=== PATIENT | female | born 1980 | race Caucasian/White ===

== ENCOUNTER → 2018-05-16 | Outpatient (CLI) | payer OTHER ==
--- NOTE | 2018-05-16 14:20 | CARD ---
MR#: [id number] Date of Study: 05/16/2018 Ordering Physician: TOMASA REVELES, Referring Physician: TOMASA REVELES, Tech: Kelley Malave [facility] APPROVED REPORT EXAM: Two-dimensional and M-mode echocardiogram with Doppler and color Doppler. Other Information Quality : AverageHR: 90bpm Rhythm : NSR INDICATION Chest Pain RISK FACTORS Family History Smoking 2D DIMENSIONS RVDd2.1 (2.9-3.5cm)Left Atrium(2D)2.6 (1.6-4.0cm) IVSd0.6 (0.7-1.1cm)Aortic Root(2D)2.9 (2.0-3.7cm) LVDd4.5 (3.9-5.9cm)LVOT Diameter1.9 (1.8-2.4cm) PWd0.7 (0.7-1.1cm)LVDs3.1 (2.5-4.0cm) FS (%) 31.2 %SV55.9 ml LVEF(%)59.1 (>50%) Aortic Valve AoV Peak Reinaldo.143.2cm/sAoV VTI25.4cm AO Peak GR.8.2mmHgLVOT Peak Reinaldo.91.0cm/s AO Mean GR.5mmHgAVA (VMAX)1.81cm2 CALLY (VTI)2.00cm2 Mitral Valve MV E Ksskhubx45.3cm/sMV DECEL [id number] MV A Ickstpwr80.0cm/sE/A Ratio1.2 MV A Ypjdnccx85vc Pulmonary Valve PV Peak Kjxmhpjz73.7cm/s LEFT VENTRICLE The left ventricle is normal size. There is normal left ventricular wall thickness. The left ventricu lar systolic function is normal. The Ejection Fraction is 55-60%. There is normal LV segmental wall m otion. The left ventricular diastolic function and filling is normal for age. RIGHT VENTRICLE The right ventricle is normal size. There is normal right ventricular wall thickness. The right ventr icular systolic function is normal. ATRIA The left atrium size is normal. The right atrium size is normal. The interatrial septum is intact wit h no evidence for an atrial septal defect or patent foramen ovale as noted on 2-D or Doppler imaging. AORTIC VALVE The aortic valve is normal in structure and function. The aortic valve is trileaflet. Doppler and Col or Flow revealed no significant aortic regurgitation. There is no significant aortic valvular stenosi s. MITRAL VALVE The mitral valve is normal in structure and function. There is no evidence of mitral valve prolapse. There is no mitral valve stenosis. Doppler and Color Flow revealed no mitral valve regurgitation note d. TRICUSPID VALVE The tricuspid valve is normal in structure and function. Doppler and Color Flow revealed no tricuspid valve regurgitation noted. There is no tricuspid valve prolapse or vegetation. There is no tricuspid valve stenosis. PULMONIC VALVE The pulmonary valve is normal in structure and function. Doppler and Color Flow revealed no pulmonic valvular regurgitation. There is no pulmonic valvular stenosis. GREAT VESSELS The aortic root is normal in size. The ascending aorta is normal in size. The IVC is normal in size a nd collapses >50% with inspiration. PERICARDIAL EFFUSION There is no evidence of significant pericardial effusion. Critical Notification Critical Value: No <Conclusion> The left ventricular systolic function is normal. The Ejection Fraction is 55-60%. There is normal LV segmental wall motion. No significant valvular abnormalities. There is no evidence of significant pericardial effusion. Signed by : Danie Mitchell, Electronically Approved : 05/16/2018 14:18:14
--- NOTE | 2018-05-16 15:05 | CARD ---
MR#: [id number] Date of Study: 05/16/2018 Ordering Physician: TOMASA REVELES, Referring Physician: TOMASA REVELES, Tech: Kelley Malave RDCS APPROVED REPORT INDICATION Chest Pain PROCEDURE The patient underwent an Exercise Stress Test using the Lucien Protocol. Blood pressure, heart rate, a nd EKG were monitored. An Echocardiogram was performed by fire range technician in four stages in quad fashion. At peak stress four se lected images were obtained and placed side by side with resting images for comparison. STRESS ECHO FINDINGS The resting Echocardiogram showed normal left ventricular systolic contractility with an estimated Ej ection Fraction of about 60 %. The Resting Echocardiogram showed normal augmentation of myocardial wall segments using a 16 segment model. The Stress Echocardiogram showed normal augmentation of myocardial wall segments using a 16 segment m darinel. The Stress Echocardiogram left ventricular systolic contractility has an estimated Ejection Fraction of about 80%. Test Type: Exercise Stress Nurse/Tech: Shaina Burleson RN Test Indications: Chest pain and shortness of air Cardiac History and Allergies: Family history,smoker Medications: see EMR Medical History: see EMR Resting ECG: SR Resting Heart Rate: 83 bpm Resting Blood Pressure: 110/70mmHg Pretest Chest Pain: No chest pain Nurse/Tech Notes S1,S2 and lungs are clear to auscultation. Patient stated she is anxious about the test. Stress Symptoms Fatigue POST EXERCISE Reason for Termination: Reached target heart rate, Fatigue Target HR: Yes Max HR: 188 bpm 104% of Maximum Predicted HR: 180 bpm Exercise duration: 9:53 min:sec, 4 Stage Exercise capacity: 12.8METs Max Blood Pressure: 140/71mmHg Blood Pressure response to exercise: Normal blood pressure response during stress. Heart Rate response to exercise: WNL Chest Pain: No. Arrhythmia: No. ST Change: No. INTERPRETATION Stress EKG Conclusion: Baseline EKG showed sinus rhythm. No ischemic changes at peak stress. No arr hythmias. <Conclusion> Treadmill exercise stress echocardiogram did not show any evidence of ischemia or infarct. Normal left ventricle systolic function with ejection fraction estimated at 60%. Patient had good activity tolerance. Low risk for cardiac events. Signed by : Danie Mitchell, Electronically Approved : 05/16/2018 15:03:37
== END | disposition home or self-care (01) ==
LOC: ECHO 12:21
PROVIDERS: ATTEND Internal Medicine Cardiovascular Disease
DX: R07.9 Chest pain, unspecified (principal); R06.02 Shortness of breath; F17.200 Nicotine dependence, unspecified, uncomplicated; Z82.49 Family history of ischemic heart disease and other diseases of the circulatory system
CPT/HCPCS: 93017; 93306; 93350

== ENCOUNTER → 2018-09-09 | Outpatient (CLI) | payer OTHER ==
[~2018-09-09] MED LIST: IOHEXOL 300 MG/ML 100ML VIAL. IV ONE
--- NOTE | 2018-09-09 13:51 | KCIC ---
CT SOFT TISSUE NECK W/CONTRAST Indication: Multiple posterior neck nodules Technique: Postcontrast CT imaging was performed of the neck, multiplanar reconstruction images submitted. One or more of the following individualized dose reduction techniques were utilized for this examination: 1. Automated exposure control 2. Adjustment of the mA and/or kV according to patient size 3. Use of iterative reconstruction technique. Comparison: None Findings: There is a large approximate 1 cm transverse by 0.9 cm AP by 1.1 cm CC oblong, enhancing lesion located at the level of the foramen magnum posterior to the cervical medullary junction. This enhances to similar degree comparing with the vasculature. There is preservation of the parapharyngeal fat planes. Parotid and submandibular glands are symmetric in appearance. There are some scattered small nodes of the bilateral neck although no enlargement chronic nodes identified. Largest nodes measuring about 0.5 cm short axis dimension. There are some small nodes of the posterior cervical chains bilaterally, largest about 0.5 cm short axis dimension. There are a few small nodules located superficial to the musculature of the posterior neck, largest about 0.3 cm short axis dimension on the right near the C2-3 level. There is no abnormality of the thyroid gland. There is some centrilobular emphysema visualized lung apices. There is moderate degenerative disc disease C5-6, spondylosis at this level and minimal posterior subluxation C5 relative to C6. There is central canal stenosis C5-6 estimated about 8 mm. There is uncovertebral degenerative change greatest on the right at C4-C5 and bilaterally at C5-C6. There is fairly severe right greater than left C5-6 neural foramina compromise, minimal narrowing of the right at C4-5. There is also mild narrowing on the left at C6-7 due to facet degenerative change. IMPRESSION: 1. There is a large focus of oblong enhancement at the level of the posterior aspect of the right magnum located posterior to the cervical medullary junction. 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 2. No significantly enlarged or necrotic nodes are identified of the neck. There are some scattered small nodes bilaterally including of posterior cervical chains. Small superficial nodules located superficial to the musculature of the neck greater on the right could be small nodes although nonspecific. Clinical follow-up is advised. 3. There is some centrilobular emphysema of the visualized lung apices. 4. There is degenerative disease and spondylosis C5-6, also minimal posterior subluxation C5 relative to C6. There is suspected central canal stenosis at C5-6 about 8 mm. There is fairly severe bilateral C5-6 neural foramina compromise. FOR INTERNAL CODING PURPOSES Critical result: Findings discussed with territory sales manager medical Og in the office of Dr. Kami Mills at 09/09/2018 1:47 PM, to inform doctor of findings. RESULT CODE: (C) Electronically signed by: Franki Gannon MD (09/09/2018 1:48 PM) [id number]
== END | disposition home or self-care (01) ==
LOC: KCIC CT 10:37
PROVIDERS: ATTEND Family Medicine
DX: R22.1 Localized swelling, mass and lump, neck (principal); J43.2 Centrilobular emphysema; M50.322 Other cervical disc degeneration at C5-C6 level; M47.812 Spondylosis without myelopathy or radiculopathy, cervical region; M43.5X2 Other recurrent vertebral dislocation, cervical region; M48.02 Spinal stenosis, cervical region; F17.210 Nicotine dependence, cigarettes, uncomplicated
CPT/HCPCS: 70491; Q9967

== ENCOUNTER → 2018-09-29 | Outpatient (CLI) | payer OTHER ==
--- NOTE | 2018-09-29 12:00 | RAD ---
FDG tumor localization scan, PET/CT, 09/29/2018: History: Lymphadenopathy Following IV injection of 14.4 mCi of 18 F-FDG, imaging was performed from the skull base to the proximal thighs. The noncontrast CT component was performed for attenuation correction and anatomic localization purposes rather than for primary diagnosis. The patient's blood glucose level at the time of injection was 82 MG/DL. Physiologic activity is evident in the neck. No hypermetabolic neck lesion is seen. No abnormal pulmonary, mediastinal or hilar FDG uptake is seen. The axillary regions are unremarkable. Normal GI tract and urinary tract activity is present in the abdomen and pelvis. There is a focus of increased activity at the right groin which demonstrates a maximum SUV of 4.6. This corresponds in location to a small nodule which cannot be clearly from the femoral artery and vein. This is most likely a lymph node. Areas of mildly increased FDG uptake are also noted in the right iliac region, however, their origin is unclear as this area is not clearly defined on the CT component due to adjacent unopacified bowel. A judith origin is suspected. A focus of increased activity is also noted in the left adnexa demonstrate a maximum SUV of 7.9. Its origin is unclear on the CT component. There is increased activity centrally in the uterus with a maximum SUV of 4.7. This is probably physiologic, related to the endometrium. Incidental note is made of granulomatous calcifications in the right chest. A small amount of free fluid is present in the pelvis. IMPRESSION: 1. Mildly increased FDG uptake at the right groin which is probably judith, and to a lesser degree in the right iliac region. 2. Increased FDG uptake in the left adnexa and centrally in the uterus may be physiologic. Correlation with sonographic findings is suggested.
== END | disposition home or self-care (01) ==
LOC: PETSC 08:50
PROVIDERS: ATTEND Family Medicine
DX: R59.1 Generalized enlarged lymph nodes (principal); J84.10 Pulmonary fibrosis, unspecified
CPT/HCPCS: 78815; A9552

== ENCOUNTER → 2019-01-13 | Outpatient (CLI) | payer MEDICAID ==
--- NOTE | 2019-01-14 10:16 | RAD ---
Pelvic ultrasound 01/13/2019 CLINICAL HISTORY: Increased uptake seen within the endometrium of the uterus on a recent PET/CT scan. Pelvic ultrasound was recommended for further evaluation. TECHNIQUE: Using the distended urinary bladder as a sonographic window, a real-time ultrasound examination of the pelvis was performed. Multiple images were obtained. FINDINGS: Comparison is made to the patient's PET/CT scan dated 09/29/2018. The uterus is retroverted. It is normal in size and echogenicity. It measures 7.7 x 5.3 x 4.9 cm in longitudinal, transverse, and AP dimensions. The endometrial echo complex measures 5 mm in thickness which is within normal limits. No focal abnormality of the uterus is seen. Both ovaries are within normal limits in size and echogenicity. The right ovary measures 3.5 x 2.0 x 1.5 cm in size. The left ovary measures 3.3 x 2.4 x 2.2 cm in size. Small follicles are seen involving both ovaries which measure 3 mm to 1 cm in size. No adnexal mass is seen. No free fluid is noted. IMPRESSION: Negative study. Electronically signed by: Tye Chavez MD (01/14/2019 10:13 AM) [facility]
== END | disposition home or self-care (01) ==
LOC: US 06:57
PROVIDERS: ATTEND Internal Medicine Hematology & Oncology
DX: N85.4 Malposition of uterus (principal); G93.9 Disorder of brain, unspecified
CPT/HCPCS: 76856

== ENCOUNTER → 2019-06-07 | Outpatient (CLI) | payer MEDICAID ==
--- NOTE | 2019-06-07 09:04 | KCIC ---
EXAM: Abdomen sonogram. HISTORY: Pain. TECHNIQUE: Sonographic imaging of the abdomen was performed. COMPARISON: PET/CT dated 09/29/2018. FINDINGS: The liver is normal in size. No focal hepatic lesion is seen. The common bile duct is normal in caliber. The gallbladder is unremarkable. The right kidney, pancreas, inferior vena cava and aorta are unremarkable. IMPRESSION: Unremarkable abdomen sonogram. Electronically signed by: Ayse Otero MD (06/07/2019 9:01 AM) [facility] [place]
== END | disposition home or self-care (01) ==
LOC: KCIC US 08:10
PROVIDERS: ATTEND Family Medicine
DX: R10.13 Epigastric pain (principal)
CPT/HCPCS: 76705

== ENCOUNTER → 2019-09-12 | Outpatient (CLI) | payer MEDICAID ==
--- NOTE | 2019-09-12 12:42 | RAD ---
EXAM: Cervical spine, 5 views. HISTORY: Pain and numbness. COMPARISON: None. FINDINGS: 5 views of the cervical spine are obtained. There is mild degenerative endplate remodeling with disc space narrowing at C5-C6. There is slight foraminal narrowing at this level. There is no fracture no listhesis. IMPRESSION: Mild degenerative change with suspected foraminal stenosis at C5-C6. Electronically signed by: Ayse Otero MD (09/12/2019 12:39 PM) [id number]
== END | disposition home or self-care (01) ==
LOC: RAD 12:07
PROVIDERS: ATTEND Family Medicine
DX: M47.22 Other spondylosis with radiculopathy, cervical region (principal)
CPT/HCPCS: 72050

== ENCOUNTER → 2019-10-10 | Outpatient (CLI) | payer MEDICAID ==
--- NOTE | 2019-10-10 14:03 | RAD ---
CERVICAL SPINE WO CONTRAST History:Reason: cervical spinal stenosis , CERVICAL RADICULOPATHY AT C5 R>L / Spl. Instructions: / History: Technique: Multiplanar, multi sequential noncontrast MR imaging was performed of the cervical spine. Comparison: None Findings: Postoperative changes suboccipital decompression. Normal vertebral body height and alignment. No fracture. No pathologic signal abnormality within the cervical spinal cord. C2-C3: No canal or neuroforaminal narrowing. C3-C4: Disc bulge. No canal or neuroforaminal narrowing. C4-C5: Small posterior disc osteophyte complex eccentric to the right. Right uncovertebral hypertrophy. Moderate right neuroforaminal narrowing. Minimal left neuroforaminal narrowing. No canal narrowing. C5-C6: Small posterior disc osteophyte complex. Minimal canal narrowing. Minimal cord flattening. Uncovertebral and facet arthropathy. Severe right and moderate to severe left neuroforaminal narrowing. C6-C7: Posterior disc osteophyte complex. No canal narrowing. Facet arthropathy. No neuroforaminal narrowing. C7-T1: No canal or neuroforaminal narrowing. Mild facet arthropathy. Impression: 1. Multilevel cervical spondylosis most prominent C4-C5 and C5-C6. 2. Neuroforaminal narrowing most prominent C5-C6. Electronically signed by: Thom Posey DO (10/10/2019 2:00 PM) [facility]
== END | disposition home or self-care (01) ==
LOC: MRI 12:47
PROVIDERS: ATTEND Family Medicine
DX: M47.22 Other spondylosis with radiculopathy, cervical region (principal); M25.78 Osteophyte, vertebrae; M48.02 Spinal stenosis, cervical region
CPT/HCPCS: 72141

== ENCOUNTER → 2019-12-25 | Outpatient (CLI) | payer MEDICAID ==
[~2019-12-25] MED LIST changes: +CITA20TA6 PO; +CLONAZEPAM1 MG PO; +IBUP200T44 PO; +IOHEXOL 180 MG/ML 10 ML VIAL. ONE; -IOHEXOL 300 MG/ML 100ML VIAL. IV ONE; +PANT20TA2 PO; +methylPREDNISolone ACETATE 40 MG/ML VIAL. ONE; +methylPREDNISolone ACETATE 80 MG/ML VIAL. ONE
--- NOTE | 2019-12-25 12:58 | PDOC2 ---
INITIAL PAIN CONSULT DATE OF SERVICE: DOS: DATE: 12/25/19 TIME: 12:48 CHIEF COMPLAINT: Chief Complaint: Neck and right upper extremity pain HISTORY OF PRESENT ILLNESS: This is a 39-year-old female presents history of pain for about 1 year base the neck and right upper extremity in a radiating fashion. 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 Patient ports her right hand is always numb also has no overt loss of motor function it is fatigue easily and some tingling numbness with dropping of items occasionally and she is right-handed. Patient reports it wakes her from sleep 3-4 times a night does not affect her bowel bladder control does affect ability to walk she has numbness in the right foot as well. Patient reports physical therapy once again with traction is fairly helpful but it does not last. Patient rates her disability of 0-10 10 being the worse with is 6 FML r esponsibilities 8 with recreation social activity occupation and life support activities 0 section behavior 7 with self-care activities. Patient reports no loss of motor function but again significant fatigability with the right upper extremity. This is worse with reaching over her head with her right hand disturbs her from sleeping and with repetitive motions even driving a car or holding items with the right hand for more than several minutes. PAST MEDICAL HISTORY: PMH: Past medical history is significant for gastroesophageal reflux and cigarette smoking anxiety carpal tunnel syndrome on the right and cerebellar hemangioblastoma PREVIOUS SURGERIES: Past Surgical Hx: Excision cerebellar hemangioblastoma x2 procedures October and November 2018, tonsillectomy, tubal ligation CURRENT MEDICATIONS: Current Meds: Active Scripts Medications Dose Route/Sig Max Daily Dose Days Date Category No Known Medications Prior To Admisstion (Info) Each 1 Each 09/09/18 Reported ALLERGIES; Allergies: Coded Allergies: No Known Drug Allergies (Unverified , 09/09/18) FAMILY HISTORY: Family Hx: Heart disease SOCIAL HISTORY: Social Hx: Patient does not abbey alcohol does smoke less than a pack a day for the past 15 years continues to smoke does not use any illegal illicit or recreational drugs patient is single lives locally in [facility] and has 2 children ages 2 and 3 that she is her primary caregiver. REVIEW OF SYSTEMS: ROS: Review of systems is positive for those items mentioned in history of present illness, all systems reviewed ,otherwise negative and are complete, full and well documented on patient's chart PHYSICAL EXAM: VS: Blood pressure 107/64 pulse 87 respiration 16 temperature is 98.2 F height is 5 foot 4 inches weight is 108 pounds PE: PHYSICAL EXAMINATION: GENERAL: The patient is awake, alert, oriented, appropriate, very pleasant demea nor HEENT: Shows normocephalic, atraumatic. Extraocular movements are intact and symmetrical. Oral cavity: Mucous membranes moist and pink. Dentition is intact. NECK: Shows anterior throat supple without palpable lymphadenopathy noted. Swallow reflex symmetrical. CHEST: Shows normal on inspection. Breath sounds are clear bilaterally. HEART: Shows S1, S2 clear. No murmurs auscultated ,no rales rhonchi or wheezes. ABDOMEN: Soft, nontender, nondistended. No palpable organomegaly is noted. No rebound or guarding demonstrated. BACK: Shows spine grossly in the midline. Normal-appearing cervical lordotic curvature, neck shows good rotation of motion cervical spine both laterally greater than 45 degrees right and left was full extension full forward flexion without significant increase in pain bilaterally. Posterior cervical musculature shows symmetrical inspection with well-healed surgical scar in the midline with palpation shows some moderate tenderness the inferior aspect of the cervical paraspinous muscles with only moderately with mild tenderness into the right greater than left superior medial trapezius but without trigger point atrophy hypertrophy. There is slightly increased thoracic kyphosis, some minor flattening of the lumbar lordotic curvature. Lumbar paraspinous muscles show symmetrical on inspection, and with palpation shows without radiation of pain. The patient has good rotational motion of the lumbar spine, both laterally as well as extension and flexion without significant difficulty. No tenderness over the spinous processes, sacrum or sacroiliac regions. EXTREMITIES: Upper extremities show deep tendon reflexes 2+ in the patellar and tendo calcaneus tendons. Motor exam is 5 on a scale of 5 with right biceps and triceps flexion and 5/5 on the left. Peripheral pulses are 2+ radial. No peripheral edema is noted bilaterally. upper extremities are warm and dry to t ouch, equal in color and appearance. Shoulder shrug is strong and intact without loss of strength on resistance as is abduction of the shoulders at 90 degrees with some moderate pain on the right but without loss of strength. The patient is able to reach over her head with both arms without significant limitation. SKIN: Shows warm and dry, good turgor. No edema. No sores, rashes or bruising throughout. IMPRESSION: Impression: This is a 39-year-old female presents with approximate 1 year history of pain base the neck and right upper extremity. Status post hemangioblastoma excision 1 year ago. MRI scan cervical spine as noted. Plan: Options discussed with the patient including conservative medical management is continued physical therapy is interventional techniques. She would like to pursue interventional techniques we discussed a cervical epidural steroid injection using descriptions as well as anatomical models to describe the procedure. Risks were then discussed including but not limited to bleeding infection possibility of epidural hematoma and subsequent neurological compromise, dural punctures headache spinal cord and or nerve damage side effects of steroid medication and poor results regarding pain control. Patient understands and wishes to proceed. Patient will return to clinic in approximate 2 weeks for follow-up, was counseled as to return appointment activity level and side effects to be aware. Procedure cervical epidural steroid injection at the C6-7 level, using local anesthetic under sterile prep and drape using C-arm fluoroscopic guidance under local anesthesia medications injected ; 120 mg Depo-Medrol + 5 mL normal saline and 2 mL contrast; condition at discharge is stable patient tolerated procedure well. and had no complications YARITZA WELLS MD Dec 25, 2019 12:58
== END | disposition home or self-care (01) ==
LOC: PNCL 09:20
PROVIDERS: ATTEND Anesthesiology
DX: M54.2 Cervicalgia (principal); M79.601 Pain in right arm; K21.9 Gastro-esophageal reflux disease without esophagitis; F41.9 Anxiety disorder, unspecified; Z87.891 Personal history of nicotine dependence; Z98.51 Tubal ligation status; Z98.890 Other specified postprocedural states; Z79.899 Other long term (current) drug therapy
CPT/HCPCS: 62321; J1030; J1040; Q9965

== ENCOUNTER → 2021-06-16 | Outpatient (CLI) | payer MEDICAID ==
[~2021-06-16] MED LIST changes: -IOHEXOL 180 MG/ML 10 ML VIAL. ONE; +IOHEXOL 300 MG/ML 100ML VIAL. IV ONE; -methylPREDNISolone ACETATE 40 MG/ML VIAL. ONE; -methylPREDNISolone ACETATE 80 MG/ML VIAL. ONE
--- NOTE | 2021-06-16 10:09 | KCIC ---
EXAM: Chest CT with intravenous contrast. HISTORY: Lymphadenopathy. Leukocytosis. TECHNIQUE: Computed tomographic images of the chest were obtained with contrast. Multiplanar reformat ting was performed. *One or more of the following individualized dose reduction techniques were utilized for this examina tion: 1. Automated exposure control. 2. Adjustment of the mA and/or kV according to patient size. 3. Use of iterative reconstruction technique. COMPARISON: CT dated 09/09/2018. FINDINGS: The heart is normal in size. The aorta is normal in caliber. There is increased soft tissue density within the anterior mediastinum. There is slight asymmetry in right axillary nodes. There is a 1.2 cm hypodense lesion within the hepatic dome, the attenuation which favors a cyst. There are ar e 1.0 cm and 1.9 cm enhancing lesions within the right hepatic lobe, the appearance of which favors c hanges due to shunt phenomenon. There are few splenic granulomas. The spleen is normal in size. There is no acute finding involving the upper abdomen. There is pulmonary emphysema. There is no pneumothorax or pleural effusion. There are calcified granu john within the right hilum and right upper and middle lobes. There is minimal right posterior depen dent atelectasis. There is no suspicious pulmonary nodule. There is no suspicious or acute osseous fi nding. IMPRESSION: 1. Slight increased soft tissue density within the anterior mediastinum. This may be due to lymphatic tissue or due to slight thymic rebound/hyperplasia. The greater than two-year course of stability of this finding favors benignity. 2. Slight asymmetry in the size of right greater than left axillary lymph nodes. These may be physiol ogic or reactive in etiology. There is no suspicious hilar lymph nodes node. 3. Pulmonary emphysema. 4. Small hepatic cyst and enhancing lesions within the right hepatic lobe, the latter which are likel y due to benign shunt phenomenon. Liver protocol MRI can be performed to confirm benignity if there i s clinical concern. Electronically signed by: Ayse Otero MD (06/16/2021 10:07 AM) [id number]
== END ==
LOC: KCIC CT 09:06
PROVIDERS: ATTEND Family Medicine
DX: R59.1 Generalized enlarged lymph nodes (principal); J98.59 Other diseases of mediastinum, not elsewhere classified; J43.9 Emphysema, unspecified; K76.89 Other specified diseases of liver; J84.10 Pulmonary fibrosis, unspecified
CPT/HCPCS: 71260; Q9967